=== PATIENT | male | born 1950 | race African-American/Black ===

== ENCOUNTER 2024-05-14 06:22 | Emergency (ER) | payer OTHER ==
[2024-05-14 07:09] LABS: #Basophils Less than 0.03 10x3/uL (0.0-0.2); #Eosinophils 0.03 10x3/uL (0.0-0.5); #Monocytes 0.43 10x3/uL (0.0-1.1); #Neutrophils 2.95 10x3/uL (1.5-8.4); %Basophils 0.2 % (0.0-2.0); %Eosinophils 0.7 % (0.0-6.0); %Lymphocytes 18.5 % (18.0-47.0); %Monocytes 10.2 % (0.0-10.0); %Neutrophils 69.9 % (40.0-75.0); Hematocrit 15.6 % (38.8-50.0); Hemoglobin 4.3 g/dL (13.5-17.5); Mean Corpuscular HGB CONC 27.6 g/dL (32.0-36.0); Mean Corpuscular Hemoglobin 25.4 pg (27.0-33.0); Mean Corpuscular Volume 92.3 fL (81.2-95.1); Mean Platelet Volume 11.6 fL (7.4-10.4); Platelet Count 224 10x3/uL (150-450); RBC Distribution Width 19.1 % (11.5-14.5); Red Blood Cell (RBC) Count 1.69 10x6/uL (4.32-5.72); White Blood Cell (WBC) Count 4.22 10x3/uL (3.5-10.5)
[2024-05-14 07:18] LABS: ALT (SGPT) 13 U/L (Less than 45); AST (SGOT) 23 U/L (11-34); Albumin 3.2 g/dL (3.1-4.5); Alkaline Phosphatase 45 U/L (40-110); Anion Gap 13 mmol/L (10-20); BUN (Urea Nitrogen) 25 mg/dL (8.4-25.7); Bilirubin, Total 0.5 mg/dL (0.3-1.2); Calc. Creatinine Clearance 0 mL/min (70-130); Calcium 8.6 mg/dL (7.8-10.44); Carbon Dioxide 24 mmol/L (23-31); Chloride 106 mmol/L (98-107); Estimated GFR 41; Globulin 2.3 g/dL (2.4-3.5); Glucose 110 mg/dL (83-110); Potassium 4.7 mmol/L (3.5-5.1); Protein, Total 5.5 g/dL (5.8-8.1); Sodium 138 mmol/L (136-145); Troponin I 0.054 ng/mL (< 0.028)
[2024-05-14 07:50] LABS: INR-International Normal Ratio 1.9; PTT 29.8 sec (22.0-33.0); Prothrombin Time 19.2 sec (9.5-12.1)
[2024-05-14 08:02] LABS: Anisocytosis SLIGHT = 6-15 cells (100X) (0-5/hpf); Hypochromia MODERATE=16-30 cells (100X) (0-5/hpf); Macrocytosis SLIGHT = 6-15 cells (100X) (0-5/hpf); Platelet Adequacy Comment Appears Adequate; Polychromasia SLIGHT = 2-3 cells (100X) (0-2/hpf); Stomatocytes SLIGHT = 2-5 cells (100X) (0-1/hpf)
[2024-05-14] MEDS ORDERED: Pantoprazole 40 MG VIAL ONE (08:54)
[2024-05-14] MEDS ORDERED: Iopamidol 370 76% 100 ML VIAL ONE (09:14)
[2024-05-14 09:15] LABS: #Basophils Less than 0.03 10x3/uL (0.0-0.2); #Eosinophils Less than 0.03 10x3/uL (0.0-0.5); #Neutrophils 2.94 10x3/uL (1.5-8.4); %Eosinophils 0.5 % (0.0-6.0); %Lymphocytes 21.3 % (18.0-47.0); %Monocytes 11.3 % (0.0-10.0); %Neutrophils 66.4 % (40.0-75.0); Hematocrit 16.4 % (38.8-50.0); Hemoglobin 4.5 g/dL (13.5-17.5); Mean Corpuscular HGB CONC 27.4 g/dL (32.0-36.0); Mean Corpuscular Hemoglobin 25.3 pg (27.0-33.0); Mean Corpuscular Volume 92.1 fL (81.2-95.1); Mean Platelet Volume 10.9 fL (7.4-10.4); Platelet Count 236 10x3/uL (150-450); Red Blood Cell (RBC) Count 1.78 10x6/uL (4.32-5.72); White Blood Cell (WBC) Count 4.42 10x3/uL (3.5-10.5)
[2024-05-14 16:28] LABS: #Basophils Less than 0.03 10x3/uL (0.0-0.2); #Eosinophils Less than 0.03 10x3/uL (0.0-0.5); #Monocytes 0.51 10x3/uL (0.0-1.1); #Neutrophils 3.71 10x3/uL (1.5-8.4); %Basophils 0.4 % (0.0-2.0); %Eosinophils 0.4 % (0.0-6.0); %Lymphocytes 15.2 % (18.0-47.0); %Monocytes 10.1 % (0.0-10.0); %Neutrophils 73.5 % (40.0-75.0); Hematocrit 21.8 % (38.8-50.0); Hemoglobin 6.4 g/dL (13.5-17.5); Mean Corpuscular HGB CONC 29.4 g/dL (32.0-36.0); Mean Corpuscular Hemoglobin 26.4 pg (27.0-33.0); Mean Corpuscular Volume 90.1 fL (81.2-95.1); Platelet Count 224 10x3/uL (150-450); Red Blood Cell (RBC) Count 2.42 10x6/uL (4.32-5.72); White Blood Cell (WBC) Count 5.05 10x3/uL (3.5-10.5)
[2024-05-14] MEDS ORDERED: Furosemide 40 MG (4 mL) VIAL ONE (16:42)
[2024-05-14] MEDS ORDERED: Calcium Gluc 4.6 MEQ/10 ML (100 MG/ML) ONE (16:50)
== END 2024-05-14 21:27 | disposition short-term general hospital (02) ==
LOC: CSHERS 06:22 → EEVIPCON 06:22 → CSHERS 21:27
DX: R55 Syncope and collapse (principal); D64.9 Anemia, unspecified; I13.0 Hypertensive heart and chronic kidney disease with heart failure and stage 1 through stage 4 chronic kidney disease, or unspecified chronic kidney disease; E11.22 Type 2 diabetes mellitus with diabetic chronic kidney disease; N18.9 Chronic kidney disease, unspecified; E03.9 Hypothyroidism, unspecified; I25.10 Atherosclerotic heart disease of native coronary artery without angina pectoris; E11.51 Type 2 diabetes mellitus with diabetic peripheral angiopathy without gangrene; E11.21 Type 2 diabetes mellitus with diabetic nephropathy; Z79.01 Long term (current) use of anticoagulants; Z79.82 Long term (current) use of aspirin; Z79.84 Long term (current) use of oral hypoglycemic drugs; Z79.899 Other long term (current) drug therapy; Z86.718 Personal history of other venous thrombosis and embolism
CPT/HCPCS: 36415; 36416; 36430; 71045; 74177; 80053; 83880; 84484; 85025; 85610; 85730; 86850; 86900; 86901; 93005; 96374; 96375; J0612; J1940; J2470; P9016; Q9967